=== PATIENT | male | born 1955 | race Caucasian/White ===

== ENCOUNTER 2021-03-30 09:07 | Outpatient (CLI) | payer MEDICARE | END 2021-03-30 09:08 | disposition home or self-care (01) | LOC: BURRAD 09:07 | PROVIDERS: ATTEND Family Medicine | DX: M25.561 Pain in right knee (principal); M17.11 Unilateral primary osteoarthritis, right knee ==

== ENCOUNTER 2025-04-21 10:39 | Outpatient (CLI) | payer MEDICARE | END 2025-04-21 10:40 | disposition home or self-care (01) | LOC: BURCT 10:39 | PROVIDERS: ATTEND Family Medicine | DX: C61 Malignant neoplasm of prostate (principal); R42 Dizziness and giddiness; R90.82 White matter disease, unspecified | CPT/HCPCS: 36415; 70450; 84153 ==